=== PATIENT | female | born 1960 | race Caucasian/White ===

== ENCOUNTER 2016-08-23 06:47 | Day surgery (SDC) | payer BC ==
[~2016-08-23 06:47] MED LIST: Buffered Lidocaine 1% SYR 3ML* 3 ML/SYR SYRINGE INTRADERM ONE; Famotidine IV* 10 MG/ML 2 ML (20 mg) IV ONE; Morphine INJ* 2 MG/ML 1 ML CARPUJECT IV PRN; PROCHLORPERAZINE INJ 5 MG/ML 2 ML VIAL IV PRN; fentaNYL* 50 MCG/ML 2 ML VIAL (100 MCG VIAL) IV PRN; oxyCODONE/Acetamin 5/325 MG* TAB PO PRN
[2016-08-23] MEDS ORDERED: ceFAZolin 2 GM PREMIX (*) 2 GM/50 ML BAG IVPB ONE (06:59)
[2016-08-23] MEDS ORDERED: Famotidine IV* 10 MG/ML 2 ML (20 mg) ONE (06:59)
[2016-08-23] MEDS ORDERED: Lidocaine 2.5%/Prilocain 2.5%* 5 GM TUBE ONE (07:30)
--- NOTE | 2016-08-23 09:27 | RAD ---
PROCEDURE: Mammographic needle/wire localization of the right breast PREOPERATIVE DIAGNOSIS: Suspicious microcalcifications of the right breast POSTOPERATIVE DIAGNOSIS: Same COMPARISONS: July 25, 2016 FIELD SERVICE TECH: Nara Manzanares MD ANESTHESIA: Local anesthesia with 1% lidocaine without epinephrine FLUOROSCOPY TIME: None CONTRAST: None PROCEDURAL NARRATIVE: The procedure was explained to the patient who indicated understanding. Written and verbal informed consent was obtained. An opportunity was given to ask and answer questions. A timeout was performed. The patient was prepped and draped in the usual sterile fashion. Using mammographic guidance, a needle/wire localization system was advanced to the target lesion in the right breast. Once position was confirmed, the needle was removed using pin pull technique. Post localization mammography was performed. The wound was dressed and the wire was secured. FINDINGS: A biopsy marker clip is noted in the right outer breast. The tip of the hook-wire is noted close proximity to the biopsy marker clip. SPECIMENS: Pending COMPLICATIONS: None DISPOSITION: The patient tolerated the procedure well, without complications during or immediately following the procedure. The patient was sent to the surgical suite in good, stable condition. IMPRESSION: 1. TECHNICALLY SUCCESSFUL UNCOMPLICATED MAMMOGRAPHIC GUIDED WIRE LOCALIZATION OF THE RIGHT BREAST FOR THE PURPOSES OF EXCISIONAL BIOPSY. 2. HISTOLOGY IS PENDING
[2016-08-23] MEDS ORDERED: KETAMINE HCL* 50 MG/ML 10 ML VIAL ONE (09:59)
[2016-08-23] MEDS ORDERED: fentaNYL* 50 MCG/ML 2 ML VIAL (100 MCG VIAL) ONE ×2 (09:59→11:07)
[2016-08-23] MEDS ORDERED: Midazolam* 1 MG/ML 5 ML VIAL (5 MG) ONE (10:00)
[2016-08-23] MEDS ORDERED: Lidocaine 1% INJ* 10 MG/ML 30 ML SDV ONE (10:05)
[2016-08-23] MEDS ORDERED: Bupivacaine 0.5% W/EPI SDV* 30 ML VIAL ONE (10:05)
[2016-08-23] MEDS ORDERED: Phenylephrine INJ* 10 MG/ML 1 ML VIAL (10 MG) ONE (10:24)
[2016-08-23] MEDS ORDERED: Lidocaine 2% PF* 10 ML AMP ONE (10:41)
[2016-08-23] MEDS ORDERED: Propofol* 10 MG/ML 20 ML BTL IV PUSH ONE (10:41)
[2016-08-23] MEDS ORDERED: Lidocaine 2% MPF* 2 ML VIAL ONE (10:41)
[2016-08-23] MEDS ORDERED: Ketorolac INJ* 30 MG/ML 1 ML VIAL ONE (11:17)
[2016-08-23 12:12] VITALS: BP 161/81
--- NOTE | 2016-08-23 13:16 | OP ---
DATE OF OPERATION: 08/23/16 - [facility] DATE OF : 64 SURGEON: Lex Zavaleta MD CONSTRUCTION IRONWORKER HELPER: None. ANESTHESIOLOGIST: Dr. Eric. ANESTHESIA: LMAC anesthesia. PRE-OP DIAGNOSIS: Microcalcifications of right breast. POST-OP DIAGNOSIS: Microcalcifications of right breast. OPERATIVE PROCEDURE: Needle localizing right breast biopsy. DESCRIPTION OF PROCEDURE: The patient was supine on the operative table. After adequate intravenous sedation, compression stockings, Evi Hugger warmer, and intravenous antibiotics, the right breast was prepped with antiseptic, draped in a sterile fashion. Local infiltrative anesthesia was administered and elliptical incision was carried out approximately 1 x 3 cm in the region of guidewire. A piece of breast tissue, approximately 4 x 4 x 3 cm in size, was removed and marked with usual localizing sutures and sent to x-ray which confirmed excision of the appropriate area. The specimen was then forwarded on to Pathology. Hemostasis was obtained using electrocautery. Additional local anesthetic was administered and closure accomplished using 3-0 and 5-0 Polysorb followed by Steri-Strips and a gauze dressing. She tolerated the procedure well and was brought to Recovery in good condition. No complications. No drains. Pathologic specimen as above. Sponge and instrument counts correct. Estimated blood loss 20 mL. CC: Dr. Lex Zavaleta; Dr. Bushra Concepcion* [id number]/[facility] #: [id number] MTDD
== END 2016-08-23 12:13 | disposition home or self-care (01) ==
LOC: OR 06:47
PROVIDERS: ATTEND Surgery
DX: R92.0 Mammographic microcalcification found on diagnostic imaging of breast (principal); F17.210 Nicotine dependence, cigarettes, uncomplicated; B18.2 Chronic viral hepatitis C; I10 Essential (primary) hypertension
CPT/HCPCS: 88307; A9270-GY; J0690; J1885; J2001; J2250; J2704; J3010

== ENCOUNTER 2018-08-10 07:28 | Emergency (ER) | payer BC ==
--- OUTSIDE RECORDS SUMMARY | 2018-08-10 07:33 | XMS REPORT | Continuity of Care Document ---
:1960 External Reference #:[id number] Author Name Peterzoe Declan Care Team Providers Name Role Phone Bushra Concepcion MD Primary Care Physician Unavailable Payers Type Date Identification Numbers Payment Provider Subscriber Policy Number: [id number] [employer] Teofilo Bain PayID: [id number] [address] [address] [place] [address] Advance Directives Description No Information Available Problems Date Description Provider Status Onset: 05/14/2017 Injury of shoulder region Good Mullins MD Active Onset: 05/14/2017 Disorder of shoulder Good Mullins MD Active Family History Date Family Member(s) Problem(s) Comments General Heart Disease General Hypertension General Cancer Social History Type Date Description Comments Sex Unknown Lives With son and grandson Occupation Currently Working ETOH Use Occasionally consumes alcohol Tobacco Use Start: Unknown Patient is a current smoker, smokes every day Smoking Status Reviewed: 07/31/18 Patient is a current smoker, smokes every day Exercise Type/Frequency Exercises sporadically Allergies, Adverse Reactions, Alerts Description No Known Drug Allergies Medications Medication Date Status Form Strength Qnty SIG Indications Ordering Provider Lisinopril-Hyd Active Tablets 10-12.5mg 1 by mouth Unknown rochlorothiazi 00 every day de Ibuprofen 200 Active Tablets 200mg 400-600mg Unknown 00 every 6 hours as needed for pain. Medications Administered in Office Medication Date Status Form Strength Qnty SIG Indications Ordering Provider Triamcinolone 06/10/ Administered Injection Zaneb (Kenalog) 2017 MD Harpreet Triamcinolone 05/14/ Administered Injection Zaneb (Kenalog) 2016 MD Harpreet Immunizations Description No Information Available Vital Signs Date Vital Result Comment 07/31/2018 1:55pm Height 65 inches 5'5" Weight 145.00 lb BP Systolic 126 mmHg BP Diastolic 80 mmHg Respiratory Rate 18 /min Pain Level 0 BMI (Body Mass Index) 24.1 kg/m2 06/10/2018 1:58pm Height 65 inches 5'5" Weight 145.00 lb BP Systolic 130 mmHg BP Diastolic 74 mmHg Respiratory Rate 18 /min Pain Level 8 BMI (Body Mass Index) 24.1 kg/m2 06/11/2017 3:39pm Height 65 inches 5'5" Weight 153.00 lb BP Systolic 118 mmHg BP Diastolic 76 mmHg Respiratory Rate 18 /min Pain Level 0 BMI (Body Mass Index) 25.5 kg/m2 05/14/2017 1:15pm Height 65 inches 5'5" Weight 153.00 lb Heart Rate 76 /min BP Systolic 115 mmHg BP Diastolic 77 mmHg Respiratory Rate 16 /min Body Temperature 97.6 F Pain Level 6 BMI (Body Mass Index) 25.5 kg/m2 08/31/2016 11:29am Heart Rate 76 /min Respiratory Rate 16 /min Body Temperature 97.7 F 08/03/2016 1:19pm Height 65 inches 5'5" Weight 156.00 lb Heart Rate 74 /min BP Systolic Sitting 118 mmHg BP Diastolic Sitting 80 mmHg Respiratory Rate 18 /min Body Temperature 97.5 F BMI (Body Mass Index) 26.0 kg/m2 Results Test Date Facility Test Result H/L Range Note Laboratory test 08/23/2016 [facility] Surgical SEE RESULT [address] [place] [address] [phone] 1 SEE RESULT BELOW Name: TEOFILO BAIN : [address]: Lex Zavaleta MD Acct: [id number] Unit: [id number] AGE: 55 Location: OR Re08/23/16 SEX: F Status: [facility] SPEC: [id number] YASMEEN: 08/23/165 [facility] [address]: Lex Zavaleta MD REQ: [id number] RECD: 08/23/16 STATUS: SOUT _ ORDERED: LEVEL V FINAL DIAGNOSIS Breast, right, lumpectomy: -- Benign breast tissue with fat necrosis, non-proliferative fibrocystic change, and associated microcalcifications. -- No evidence of invasive or in situ carcinoma. PRE-OPERATIVE DIAGNOSIS Mammographic microcalcifications found on diagnositic; usual markings GROSS DESCRIPTION The specimen is received fresh labeled, Right Breast Excision Usual Markings , and consists of a 7.0 x 4.6 x 3.5 cm yellow-white ovoid portion of fibrofatty soft tissue with three attached sutures, which are designated as follows: long-lateral, short- superior and medium-medial. The specimen is partially surfaced by a 2.7 x 0.7 cm farris- pink wrinkled skin ellipse on the superior anterior aspect. There is a needle localization wire entering the specimen through the skin ellipse and extending towards the central aspect. The cut surface consists predominantly of yellow lobulated adipose tissue with moderate interspersed dense farris-white rubbery fibrous tissue. The fibrous tissue associated with the wire is focally nodular with rare focal hemorrhage. The nodular fibrous tissue extends medial. A discrete lesion is not identified. The specimen is inked as follows: superior anterior-blue, inferior anterior-green and deep-black, serially sectioned from lateral to medial and telesales representative sections are submitted in cassettes A through K to include section associated with wire in cassettes E through G. Signed (signature on file) Neha Chung MD [id number] END OF REPORT * ML=Testing performed at Main Lab DEPARTMENT OF PATHOLOGY, [address] [place] [address] Octavio Owens M.D. Director [facility] # [id number] Procedures Date Code Description Status 06/10/2018 Injection Single Tendon Origin/Insertion Completed 05/14/2017 Inject/Drain Joint/Bursa Major W/O US Completed 08/23/2016 Excise Breast Lesion Single,Identified By Pre-Op Completed Radiolog Marker 08/23/2016 [id number] Mammogram Completed 07/25/2016 [id number] Mammogram Completed 07/13/2016 [id number] Mammogram Completed Encounters Type Date Location Provider Dx Diagnosis Office Visit 06/11/2017 Orthopedic Good Mullins MD M75.41 Impingement 3:15p [facility] syndrome of right shoulder S46.101A Unsp injury of musc/fasc/tend long hd bicep, right arm, init Office Visit 05/14/2017 1:00p Orthopedic Alfonso [email or web address] Impingement Services Of syndrome of right [facility] shoulder S46.101A Unsp injury of musc/fasc/tend long hd bicep, right arm, init S46.111A Strain of musc/fasc/tend long hd bicep, right arm, init Office Visit 08/03/2016 Surgical Lex Watters.[email or web address] Mammographic 1:30p Associates Iggy Zavaleta M.D. microcalcification Extension Supervisor found on dx imaging of brst Plan of Treatment No Information Available
[2018-08-10 07:40] VITALS: BP 147/94
--- NOTE | 2018-08-10 07:44 | UC ---
UC General HPI - HPI Summary HPI Summary: Patient is 57 year old woman, who present today to the urgent care pain around anus for past 1 month that got worse for past 2 days. Reports as noticeable bumps around anus. Denies any current bleeding but reports bleeding last month- 1 episode and that resolved spontaneously She denies any constipation or diarrhea, there is no pain with defecation She has not been sexually active for past 8 years. Denies any fever, chills, cough chest pain or shortness of breath . Denies any abdominal pain , nausea or vomiting , diarrhea or constipation. Denies any urinary symptoms or vaginal discharge. Patient tried Preparation H, witch saumya, warm compresses and warm tub bath without much relief. - History of Current Complaint Chief Complaint: UCGI Stated Complaint: PERSONAL Time Seen by Provider: 08/10/18 07:34 Hx Obtained From: Patient Hx Last Menstrual Period: 10 years ago Pain Intensity: 1 - Allergy/Home Medications Allergies/Adverse Reactions: Allergies Allergy/AdvReac Type Severity Reaction Status Date / Time No Known Allergies Allergy Verified 08/10/18 07:40 Home Medications: Home Medications Lisinopril/HCTZ 20/12.5(NF) [Zestoretic 20/12.5(NF)] 1 tab PO DAILY 08/10/18 [ History Confirmed 08/10/18] PMH/Surg Hx/FS Hx/Imm Hx - Additional Past Medical History Additional PMH: Chronic hepatitis C Hypertension Previously Healthy: Yes - Surgical History Surgical History: Yes Surgery Procedure, Year, and Place: t&a, gallbladder, tubal, breast biopsy - Social History Alcohol Use: Daily Alcohol Amount: 2 glasses of wine Substance Use Type: None Smoking Status (MU): Heavy Every Day Tobacco Smoker Type: Cigarettes Amount Used/How Often: 1 PPD Length of Time of Smoking/Using Tobacco: 41 Have You Smoked in the Last Year: No Household Exposure Type: Cigarettes Review of Systems All Other Systems Reviewed And Are Negative: Yes Constitutional: Positive: Fever Skin: Positive: Negative Eyes: Positive: Negative ENT: Positive: Negative Respiratory: Positive: Negative Cardiovascular: Positive: Negative Gastrointestinal: Positive: Other - Anal pain/ irritation Genitourinary: Positive: Negative Motor: Positive: Negative Neurovascular: Positive: Negative Musculoskeletal: Positive: Negative Neurological: Positive: Negative Psychological: Positive: Negative Is Patient Immunocompromised?: No Physical Exam - Summary Physical Exam Summary: Physical Exam: Const: Appears well. No signs of apparent distress present. Alert and oriented x 3. Musculo: Walks with a normal gait. Head/Face: Atraumatic, normocephalic on inspection. Eyes: EOMI and PERRLA in both eyes. Conjunctivae clear. No discharge noted ENT: Hearing normal, TM normal appearing bilaterally . Respiratory: Respirations are unlabored. Lungs clear to auscultation bilaterally, no wheezing , rhonchi or rales noted . CVS: Regular rate and Rhythm, S1S2 normal , no murmurs identified. Extremities: Peripheral circulation is grossly normal. Pulses 2+ Abdomen : Soft non tender , nondistended , Bowel sounds present . Per rectal exam: Exam chaperoned by nurse , Charla Small and tear noted at 9 o'clock position There is a small skin tags/ warts(condyloma acuminata) noted at around 6 o' clock position, nontender to palpate On digital exam there is significant pain and possible internal hemorrhoids. No bleeding or external hemorrhoids were identified. Patient tolerated the procedure well Skin: No lesions or rash located on the upper extremities or on the lower extremities. Neuro: Cranial nerves II to XII intact, motor and sensory intact. DTR Intact bilaterally. Mood is normal. Affect is normal. Triage Information Reviewed: Yes Vital Signs: Initial Vital Signs Temp 97.2 F 08/10/18 07:32 Pulse 79 08/10/18 07:32 Resp 16 08/10/18 07:32 BP 147/94 08/10/18 07:32 Pulse Ox 100 08/10/18 07:32 Vital Signs Reviewed: Yes Course/Dx - Course Course Of Treatment: During the visit today, we discussed the findings and further plan. Her symptoms can be secondary to the fissure or internal hemorrhoids . The wart looking like lesions can be the source of her pain but they're completely nontender . Plan to try Anusol HC and have her evaluated by general surgery for further evaluation. Advised her to avoid constipation. I will prescribe the medication to the pharmacy . Patient expressed understanding . - Diagnoses Provider Diagnosis: Anal fissure, Internal hemorrhoids, Condyloma acuminatum Discharge - Sign-Out/Discharge Documenting (check all that apply): Patient Departure All imaging exams completed and their final reports reviewed: No Studies - Discharge Plan Condition: Stable Disposition: HOME Prescriptions: Hydrocortisone SUPP* [Anusol HC Supp*] 25 mg .SEE ORDER DAILY 10 Days #1 supp Patient Education Materials: Hemorrhoids (ED), Anal Fissure (ED), Genital Warts (ED) Referrals: Cedrick Constantino MD [Medical Doctor] - 3 Days Bushra Concepcion MD [Primary Care Provider] - 1 Week Additional Instructions: Please start taking the medication as prescribed to the pharmacy . Follow up with your primary care doctor in 1 week. Please follow up with general surgery for the consult for definitive management Patients blood pressure slightly high in Urgent care today , plan follow up with PCP for better control Return to Urgent care / ER if symptoms get worse. - Billing Disposition and Condition Condition: STABLE Disposition: Home
== END 2018-08-10 08:10 | disposition home or self-care (01) ==
LOC: UCEAST 07:28
DX: K60.2 Anal fissure, unspecified (principal); K64.8 Other hemorrhoids; A63.0 Anogenital (venereal) warts; I10 Essential (primary) hypertension
CPT/HCPCS: 99212; G0463

== ENCOUNTER 2021-01-20 12:28 | Inpatient (IN) ==
[2021-01-20 13:05] LABS: Albumin 2.9 g/dL (3.2-5.2); Albumin/Globulin Ratio 0.9 (1-3); Calcium 7.7 mg/dL (8.6-10.3); Creatinine, Serum 0.49 mg/dL (0.51-0.95); EGFR Non-African American 129.7 (>60); Globulin 3.2 g/dL (2-4); Magnesium 1.8 mg/dL (1.9-2.7); Potassium 3.1 mmol/L (3.5-5.0); Total Protein 6.1 g/dL (6.4-8.9)
[2021-01-20 13:06] LABS: Hematocrit 25 % (35-47); Hemoglobin 8.6 g/dL (12.0-16.0); Mean Corpuscular Hemoglobin 33 pg (27-31); Mean Corpuscular Hgb Conc 35 g/dL (31-36); Mean Corpuscular Volume 95 fL (80-97); Mean Platelet Volume 6.7 fL (7.4-10.4); Platelet Count 57 10^3/uL (150-450); Red Blood Count 2.59 10^6 /uL (3.70-4.87); Red Cell Distribution Width 14 % (10-15); White Blood Count 0.3 10^3/uL (3.5-10.8)
[2021-01-20 13:34] LABS: ABS Lymphocytes 0.1 10^3/ul (1.0-4.8); ABS Monocytes 0.2 10^3/ul (0-0.8); ABS Neutrophils 0.1 10^3/ul (1.5-7.7); Eosinophil % 3.7 %; Nucleated Red Blood Cells % 0.8
[2021-01-20] MEDS ORDERED: KCL 10 MEQ/50 ML IVPREMIX 20 MEQ/100 ML BAG ONE (13:35)
[2021-01-20] MEDS ORDERED: Cefepime 2 GM VIAL ONE (17:13)
[2021-01-20 17:23] LABS: Urine Appearance Cloudy; Urine Bilirubin Negative (Negative); Urine Blood 1+ (Negative); Urine Color Yellow; Urine Glucose Negative (Negative); Urine Ketones 1+ (Negative); Urine Nitrite Negative (Negative); Urine Protein Negative (Negative); Urine Specific Gravity 1.012 (1.002-1.030); Urine Urobilinogen Negative (Negative)
[2021-01-20 17:33] LABS: Urine Bacteria Absent (Absent); Urine Red Blood Cell Trace(0-2/hpf) (Absent); Urine Squamous Epithelial Cell Present (Absent); Urine White Blood Cell 3+(>20/hpf) (Absent)
[2021-01-20 18:10] LABS: Rapid COVID-19 Molecular Undetected (Undetected)
[2021-01-20] MEDS ORDERED: LIDOCAINE HCL TOPICAL PRN (18:22)
[2021-01-20] MEDS ORDERED: HYDROCORTISONE TOPICAL PRN (18:22)
[2021-01-20] MEDS ORDERED: Benzocaine/Menthol Pain Spray - BTL 78 GM TOPICAL PRN (18:48)
[2021-01-20] MEDS: KCL 20 MEQ/100 ML IVPREMIX 20 MEQ/100 ML BAG IV SCH (19:57)
[2021-01-20] MEDS: Enoxaparin 40 MG/0.4 ML SYR SUBCUT SCH (20:14)
[2021-01-20] MEDS: Diphenoxylat/Atrop 2.5-0.025mg TAB PO PRN (21:06)
[2021-01-20] MEDS: Lidocaine 2.5%/Prilocain 2.5% 5 GM TUBE TOPICAL PRN (22:25)
[2021-01-20] MEDS: Benzocaine/Butamben/Tetracain (CETACAINE - SINGLE USE) 5 gm TOPICAL ONE (23:51)
[2021-01-21] MEDS: Benzocaine/Butamben/Tetracain (CETACAINE - SINGLE USE) 5 gm TOPICAL ONE (00:10)
[2021-01-21] MEDS: Cefepime 2 GM in Dextrose 2 GM/50 ML BAG IV SCH (01:40)
[2021-01-21] MEDS: Silver Sulfadiazine 1% 20 gm TUBE TOPICAL PRN (01:40)
[2021-01-21 02:20] LABS: Urine Appearance Clear; Urine Bilirubin Negative (Negative); Urine Blood 1+ (Negative); Urine Color Yellow; Urine Glucose Negative (Negative); Urine Ketones 1+ (Negative); Urine Nitrite Negative (Negative); Urine Protein Negative (Negative); Urine Specific Gravity 1.012 (1.002-1.030); Urine Urobilinogen Negative (Negative)
[2021-01-21 02:28] LABS: Urine Bacteria Absent (Absent); Urine Red Blood Cell Trace(0-2/hpf) (Absent); Urine White Blood Cell Trace(0-5/hpf) (Absent)
[2021-01-21 06:03] LABS: Hematocrit 19 % (35-47); Hemoglobin 6.8 g/dL (12.0-16.0); Mean Corpuscular Hemoglobin 34 pg (27-31); Mean Corpuscular Hgb Conc 36 g/dL (31-36); Mean Corpuscular Volume 94 fL (80-97); Mean Platelet Volume 6.8 fL (7.4-10.4); Platelet Count 33 10^3/uL (150-450); Red Blood Count 2.03 10^6 /uL (3.70-4.87); Red Cell Distribution Width 14 % (10-15); White Blood Count 0.4 10^3/uL (3.5-10.8)
[2021-01-21 06:08] LABS: Calcium 6.8 mg/dL (8.6-10.3); Creatinine, Serum 0.36 mg/dL (0.51-0.95); EGFR Non-African American 185.1 (>60); Magnesium 1.6 mg/dL (1.9-2.7); Potassium 3.5 mmol/L (3.5-5.0)
[2021-01-21 07:05] LABS: Albumin 2.4 g/dL (3.2-5.2); Calcium 6.9 mg/dL (8.6-10.3); Creatinine, Serum 0.37 mg/dL (0.51-0.95); EGFR Non-African American 179.4 (>60); Globulin 2.6 g/dL (2-4); Magnesium 1.7 mg/dL (1.9-2.7); Potassium 3.6 mmol/L (3.5-5.0)
[2021-01-21 07:06] LABS: Albumin/Globulin Ratio 0.9 (1-3); Total Bilirubin 0.8 mg/dL (0.2-1.0)
[2021-01-21 07:09] LABS: ABS Monocytes 0.3 10^3/ul (0-0.8); ABS Neutrophils 0.1 10^3/ul (1.5-7.7); Eosinophil % 2.6 %; Lymphocyte % 4.5 %
[2021-01-21] MEDS: Calcium (OSCAL) 500 mg TAB PO SCH (07:50)
[2021-01-21 08:06] LABS: Hematocrit 19 % (35-47); Hemoglobin 6.8 g/dL (12.0-16.0); Mean Corpuscular Hemoglobin 33 pg (27-31); Mean Corpuscular Hgb Conc 35 g/dL (31-36); Mean Corpuscular Volume 96 fL (80-97); Mean Platelet Volume 6.8 fL (7.4-10.4); Platelet Count 31 10^3/uL (150-450); Red Blood Count 2.03 10^6 /uL (3.70-4.87); Red Cell Distribution Width 14 % (10-15); White Blood Count 0.3 10^3/uL (3.5-10.8)
[2021-01-21 09:42] LABS: ABS Monocytes 0.2 10^3/ul (0-0.8); ABS Neutrophils 0.1 10^3/ul (1.5-7.7); Eosinophil % 2.7 %; Lymphocyte % 5.8 %
[2021-01-21 10:00] LABS: Nucleated Red Blood Cells % 1.1
[2021-01-21] MEDS: Nicotine PATCH 14 MG/24 HR PATCH TRANSDERM SCH (11:10)
[2021-01-21] MEDS: Magnesium Sulfate 2 gm BAG 2 GM/50 ML BAG IVPB ONE (11:13)
[2021-01-21 20:56] LABS: SARS Coronavirus-2 Undetected (Undetected)
[2021-01-22] MEDS: NS 0.9% 1000 ml BAG 1,000 ML IV SCH (06:31)
[2021-01-22 06:32] LABS: Calcium 7.1 mg/dL (8.6-10.3); Creatinine, Serum 0.37 mg/dL (0.51-0.95); EGFR Non-African American 179.4 (>60); Potassium 3.4 mmol/L (3.5-5.0)
[2021-01-22 06:35] LABS: ABS Lymphocytes 0.1 10^3/ul (1.0-4.8); ABS Monocytes 0.3 10^3/ul (0-0.8); ABS Neutrophils 0.3 10^3/ul (1.5-7.7); Eosinophil % 6.6 %; Hematocrit 21 % (35-47); Hemoglobin 7.4 g/dL (12.0-16.0); Lymphocyte % 8.6 %; Mean Corpuscular Hemoglobin 33 pg (27-31); Mean Corpuscular Hgb Conc 35 g/dL (31-36); Mean Corpuscular Volume 95 fL (80-97); Mean Platelet Volume 7.8 fL (7.4-10.4); Nucleated Red Blood Cells % 2.1; Platelet Count 35 10^3/uL (150-450); Red Cell Distribution Width 14 % (10-15); White Blood Count 0.7 10^3/uL (3.5-10.8)
[2021-01-22] MEDS ORDERED: NS 0.9% 1000 ml BAG 1,000 ML IV SCH (09:13)
[2021-01-22] MEDS: KCL 20 MEQ/100 ML IVPREMIX 20 MEQ/100 ML BAG IV ONE (09:40)
[2021-01-22] MEDS: Magnesium Sulfate 2 gm BAG 2 GM/50 ML BAG IVPB ONE (09:40)
[2021-01-22] MEDS: Ondansetron 4 mg VIAL 2 MG/ML 2 ml VIAL IV PRN (22:07)
[2021-01-23 05:55] LABS: ABS Lymphocytes 0.1 10^3/ul (1.0-4.8); ABS Monocytes 0.2 10^3/ul (0-0.8); ABS Neutrophils 0.4 10^3/ul (1.5-7.7); Eosinophil % 5.7 %; Hematocrit 19 % (35-47); Hemoglobin 6.7 g/dL (12.0-16.0); Lymphocyte % 9.4 %; Mean Corpuscular Hemoglobin 33 pg (27-31); Mean Corpuscular Hgb Conc 35 g/dL (31-36); Mean Corpuscular Volume 95 fL (80-97); Platelet Count 32 10^3/uL (150-450); Red Blood Count 2.01 10^6 /uL (3.70-4.87); Red Cell Distribution Width 14 % (10-15); White Blood Count 0.8 10^3/uL (3.5-10.8)
[2021-01-23 06:04] LABS: Calcium 7.3 mg/dL (8.6-10.3); Creatinine, Serum 0.36 mg/dL (0.51-0.95); EGFR Non-African American 185.1 (>60); Potassium 3.4 mmol/L (3.5-5.0)
[2021-01-23] MEDS: Potassium Chlor 20 meq TAB.ER PO ONE (10:17)
[2021-01-23] MEDS: Diphenoxylat/Atrop 2.5-0.025mg TAB PO SCH (22:47)
[2021-01-24 07:02] LABS: Calcium 7.6 mg/dL (8.6-10.3); Creatinine, Serum 0.44 mg/dL (0.51-0.95); EGFR African American 177.7 (>60); EGFR Non-African American 146.9 (>60); Magnesium 1.7 mg/dL (1.9-2.7); Potassium 3.7 mmol/L (3.5-5.0)
[2021-01-24 07:04] LABS: Hematocrit 23 % (35-47); Hemoglobin 8.1 g/dL (12.0-16.0); Mean Corpuscular Hemoglobin 33 pg (27-31); Mean Corpuscular Hgb Conc 35 g/dL (31-36); Mean Corpuscular Volume 94 fL (80-97); Mean Platelet Volume 7.4 fL (7.4-10.4); Platelet Count 29 10^3/uL (150-450); Red Blood Count 2.47 10^6 /uL (3.70-4.87); Red Cell Distribution Width 14 % (10-15); White Blood Count 1.2 10^3/uL (3.5-10.8)
[2021-01-24 07:37] LABS: ABS Lymphocytes 0.1 10^3/ul (1.0-4.8); ABS Monocytes 0.4 10^3/ul (0-0.8); ABS Neutrophils 0.7 10^3/ul (1.5-7.7); Eosinophil % 3.8 %; Lymphocyte % 11.5 %; Nucleated Red Blood Cells % 0.3
[2021-01-24 10:58] LABS: Calcium 8.6 mg/dL (8.6-10.3); Creatinine, Serum 0.49 mg/dL (0.51-0.95); EGFR Non-African American 129.7 (>60); Potassium 3.8 mmol/L (3.5-5.0)
[2021-01-24] MEDS: Magnesium Sulfate IV 3 GM in NS 0.9% 100 ml BAG 100 ML IVPB ONE (11:19)
[2021-01-25 10:07] LABS: ABS Lymphocytes 0.2 10^3/ul (1.0-4.8); ABS Monocytes 0.3 10^3/ul (0-0.8); ABS Neutrophils 0.6 10^3/ul (1.5-7.7); Eosinophil % 2.9 %; Hematocrit 24 % (35-47); Hemoglobin 8.1 g/dL (12.0-16.0); Lymphocyte % 14.6 %; Mean Corpuscular Hemoglobin 32 pg (27-31); Mean Corpuscular Hgb Conc 34 g/dL (31-36); Mean Corpuscular Volume 95 fL (80-97); Mean Platelet Volume 7.2 fL (7.4-10.4); Nucleated Red Blood Cells % 1.4; Platelet Count 30 10^3/uL (150-450); Red Blood Count 2.52 10^6 /uL (3.70-4.87); Red Cell Distribution Width 15 % (10-15); White Blood Count 1.1 10^3/uL (3.5-10.8)
[2021-01-25] MEDS: Calcium Carb (TUMS) 500 mg CHEW TAB PO SCH (15:48)
[2021-01-26 06:17] VITALS: BP 122/72
[2021-01-26 06:34] LABS: Albumin 2.3 g/dL (3.2-5.2); Albumin/Globulin Ratio 0.9 (1-3); Creatinine, Serum 0.37 mg/dL (0.51-0.95); EGFR Non-African American 179.4 (>60); Globulin 2.7 g/dL (2-4); Potassium 3.3 mmol/L (3.5-5.0); Total Bilirubin 0.6 mg/dL (0.2-1.0)
[2021-01-26 06:43] LABS: Hematocrit 23 % (35-47); Hemoglobin 7.8 g/dL (12.0-16.0); Mean Corpuscular Hemoglobin 33 pg (27-31); Mean Corpuscular Hgb Conc 35 g/dL (31-36); Mean Corpuscular Volume 94 fL (80-97); Mean Platelet Volume 8.5 fL (7.4-10.4); Platelet Count 37 10^3/uL (150-450); Red Blood Count 2.39 10^6 /uL (3.70-4.87); Red Cell Distribution Width 15 % (10-15); White Blood Count 1.7 10^3/uL (3.5-10.8)
[2021-01-26 07:34] LABS: ABS Neutrophils 1.1 10^3/ul (1.5-7.7); RBC Morphology Normal (Normal)
[2021-01-26 07:35] LABS: ABS Lymphocytes 0.2 10^3/ul (1.0-4.8); ABS Monocytes 0.3 10^3/ul (0-0.8)
[2021-01-26] MEDS: Potassium Chlor 20 meq TAB.ER PO ONE (11:15)
== END 2021-01-26 12:40 | disposition home health service (06) ==
LOC: CHOA 12:28 → MED 18:43
PROVIDERS: ADMIT Internal Medicine Hematology & Oncology; ATTEND Internal Medicine Hematology & Oncology